=== PATIENT | female | born 1965 | race Caucasian/White ===

== ENCOUNTER 2017-02-07 18:13 | Outpatient (CLI) | payer BC | END 2017-02-07 23:00 | LOC: LAB SRH 18:13 | DX: N18.3 Chronic kidney disease, stage 3 (moderate) (principal); D63.1 Anemia in chronic kidney disease; E78.5 Hyperlipidemia, unspecified; Z94.0 Kidney transplant status | CPT/HCPCS: 90040; 90074; 90100; 91504; 92668; 92670; 92690; 92720; 92740; 92860; 95059 ==

== ENCOUNTER 2017-03-02 20:35 | Outpatient (CLI) | payer BC | END 2017-03-02 23:00 | disposition home or self-care (01) | LOC: LAB SRH 20:35 | DX: Z94.0 Kidney transplant status (principal); N18.3 Chronic kidney disease, stage 3 (moderate) | CPT/HCPCS: 90004; 90040; 90074; 91171; 92715 ==

== ENCOUNTER 2017-05-15 19:25 | Outpatient (CLI) | payer BC | END 2017-05-16 16:05 | disposition home or self-care (01) | LOC: LAB SRH 19:25 | DX: M10.09 Idiopathic gout, multiple sites (principal); N18.3 Chronic kidney disease, stage 3 (moderate); Z94.0 Kidney transplant status; E89.0 Postprocedural hypothyroidism | CPT/HCPCS: 90004; 90040; 90100; 90185; 91023; 91171; 91610; 92331; 92720; 92740; 92860; 93140; 95059 ==